=== PATIENT | female | born 1950 | race Caucasian/White ===

== ENCOUNTER 2017-07-21 08:00 | Outpatient (CLI) | payer MEDICARE, OTHER ==
[2017-07-21 12:51] LABS: BASOPHILS % (AUTO) 0.9 %; EOSINOPHILS # (AUTO) 0.1 10^3/uL (0.0-0.7); EOSINOPHILS % (AUTO) 1.3 %; LYMPHOCYTES # (AUTO) 1.3 10^3/uL (1.5-3.5); LYMPHOCYTES % (AUTO) 32.5 %; MEAN CORPUSCULAR HEMOGLOBIN 32.1 pg (27.0-31.0); MEAN CORPUSCULAR HGB CONC 32.6 g/dL (32.0-36.0); MEAN CORPUSCULAR VOLUME 98.4 fL (81.0-99.0); MEAN PLATELET VOLUME 9.3 fL (7.9-10.8); MONOCYTES # (AUTO) 0.3 10^3/uL (0.0-1.0); MONOCYTES % (AUTO) 8.5 %; NEUTROPHILS # (AUTO) 2.3 10^3/uL (1.5-6.6); NEUTROPHILS % (AUTO) 56.8 %; PLT - PLATELET COUNT 188 10^3/uL (130-450); RED BLOOD COUNT 4.06 10^6/uL (4.20-5.40); RED CELL DISTRIBUTION WIDTH 14.3 % (12.0-15.0)
[2017-07-21 13:02] LABS: ALBUMIN 4.2 g/dL (3.2-5.5); ALBUMIN/GLOBULIN RATIO 1.5 (1.0-2.2); BILIRUBIN,TOTAL 0.7 mg/dL (0.2-1.0); CALCIUM 8.7 mg/dL (8.5-10.3); CREATININE 0.8 mg/dL (0.4-1.0)
[2017-07-21 13:09] LABS: RBC MORPHOLOGY (MULTIPLE) 2+ ANISOCYTOSIS (NORMAL)
[2017-07-22 15:20] LABS: HEPATITIS C ANTIBODY NON-REACTIVE (NON-REACTIVE)
== END 2017-07-21 08:01 ==
LOC: LAB.N 08:00
PROVIDERS: ATTEND Physician Assistant Medical
DX: Z00.00 Encounter for general adult medical examination without abnormal findings (principal); Z79.899 Other long term (current) drug therapy; M81.0 Age-related osteoporosis without current pathological fracture; Z11.59 Encounter for screening for other viral diseases; E01.0 Iodine-deficiency related diffuse (endemic) goiter; Z72.89 Other problems related to lifestyle
CPT/HCPCS: 36415; 80053; 82306; 84443; 85025; 86803

== ENCOUNTER 2018-05-06 16:33 | Outpatient (CLI) | payer MEDICARE, OTHER ==
--- NOTE | 2018-05-09 09:20 | Ultrasound Report ---
Reason: THYROMEGALY Procedure Date: 05/06/2018 Accession Number: [id number] / [id number] Procedure: US - Head or Neck Soft Tissue CPT Code: FULL RESULT: EXAM: THYROID ULTRASOUND EXAM DATE: 05/06/2018 05:43 PM. CLINICAL HISTORY: THYROMEGALY. COMPARISON: Thyroid ultrasound 08/01/2008. TECHNIQUE: Real time sonographic imaging of the thyroid was performed by the tugger operator. Multiple arborist representative static images were saved for review. FINDINGS: THYROID GLAND: Right Lobe: 5.6 x 2.1 x 2.0 cm, volume 12.2 cc. Normal background echotexture. Right Lobe Nodules: 1. Upper pole 13 x 11 x 8 mm predominately hypoechoic solid complex nodule. Probably measuring 16 x 8 x 11 mm previously. 2. Midpole 18 x 14 x 8 mm predominately hypoechoic solid complex nodule. Probably measuring 15 x 7 x 17 mm previously. 3. Lower pole 30 x 19 x 23 mm complex nodule. Probably measuring 21 x 12 x 12 mm previously. Left Lobe: 3.9 x 2.2 x 1.4 cm, volume 6.2 cc. Normal background echotexture. Left Lobe Nodules: 1. Midpole 24 x 11 x 11 mm solid slightly hypoechoic nodule. Probably measuring 26 x 13 x 17 mm previously. 2. Lower pole 17 x 10 x 9 mm complex nodule. Probably measuring 21 x 12 x 15 mm previously. Isthmus: 0.3 cm AP. Isthmic Nodules: None. LYMPH NODES: No adenopathy demonstrated in the central or lateral compartment. OTHER: None. IMPRESSION: 1. Bilateral thyroid nodules, as described above, which meet criteria for consideration of ultrasound-guided FNA biopsy, if not already performed. Otherwise, at a minimum, continued ultrasound surveillance in 6-12 months is recommended.. Management recommendations are based on 2015 [employer] Management Guidelines for Adult Patients with Thyroid Nodules and Differentiated Thyroid Cancer. RADIA
== END 2018-05-06 16:34 | disposition home or self-care (01) ==
LOC: DI 16:33
PROVIDERS: ATTEND Physician Assistant Medical
DX: E04.2 Nontoxic multinodular goiter (principal)
CPT/HCPCS: 76536

== ENCOUNTER 2018-09-15 07:36 | Outpatient (CLI) | payer MEDICARE, OTHER ==
--- NOTE | 2018-09-15 09:38 | Ultrasound Report ---
Reason: LT CHEST WALL MASS, S/P MASTECTOMY Procedure Date: 09/15/2018 Accession Number: [id number] / [id number] Procedure: US - Breast Unilateral Limited CPT Code: FULL RESULT: EXAM: Breast Unilateral Limited DATE: 09/15/2018 8:54 AM CLINICAL HISTORY: History of left mastectomy in 2009. Intermittent palpable lump and tenderness inferior to the mastectomy scar over the last year. Palpable findings were also confirmed by PCP exam; patient unable to palpate today. TECHNIQUE: Real-time ultrasound was performed of the left mastectomy site by both the technologist and the radiologist with attention to the areas of palpable concern inferior to the mastectomy scar medial and lateral. COMPARISON: None FINDINGS: Targeted ultrasound is performed of the entire mastectomy site with attention to areas of the palpable concern described inferior to the lumpectomy scar. No concerning palpable findings were noted to physical exam today. Only normal tissues are noted expected scarring changes along the length of the mastectomy scar. IMPRESSION: Left breast: Expected post mastectomy changes. No ultrasound abnormality in the regions of the clinical concern. Benign. BI-RADS Category 2. Clinical follow-up for palpable findings is recommended. Patient was instructed to seek further evaluation for any increase in current symptoms or new symptoms/concerns and to continue with routine screening mammography of the contralateral breast. BI-RADS CATEGORY 2: Benign findings
== END 2018-09-15 07:37 | disposition home or self-care (01) ==
LOC: DI 07:36
PROVIDERS: ATTEND Internal Medicine Hematology & Oncology
DX: R22.2 Localized swelling, mass and lump, trunk (principal); Z85.3 Personal history of malignant neoplasm of breast; Z90.12 Acquired absence of left breast and nipple
CPT/HCPCS: 76642

== ENCOUNTER 2019-02-27 08:00 | Outpatient (CLI) | payer MEDICARE, OTHER ==
[2019-02-27 12:35] LABS: ALBUMIN 4.1 g/dL (3.2-5.5); ALBUMIN/GLOBULIN RATIO 1.4 (1.0-2.2); ALKALINE PHOSPHATASE 64 IU/L (42-121); ALT ALANINE AMINOTRANSFERASE 13 IU/L (10-60); AST ASPARTATE AMINOTRANSFERASE 17 IU/L (10-42); BILIRUBIN,TOTAL 0.7 mg/dL (0.2-1.0); BUN - BLOOD UREA NITROGEN 13 mg/dL (6-20); CALCIUM 9.1 mg/dL (8.5-10.3); CARBON DIOXIDE - CO2 29 mmol/L (21-32); CHLORIDE 102 mmol/L (101-111); CHOL/HDL RATIO 2.7 (<4.4); CHOLESTEROL 201 mg/dL; CREATININE 0.8 mg/dL (0.4-1.0); GFR - MDRD 71 (>89); GLUCOSE 87 mg/dL (70-100); HDL CHOLESTEROL 75 mg/dL; LDL CHOLESTEROL,CALCULATED 109 mg/dL; LDL/HDL RATIO 1.5 (<4.4); SODIUM 138 mmol/L (135-145); TOTAL PROTEIN 7.1 g/dL (6.7-8.2); VLDL CHOLESTEROL 17 mg/dL
[2019-02-27 12:41] LABS: BASOPHILS % (AUTO) 0.7 %; EOSINOPHILS # (AUTO) 0.1 10^3/uL (0.0-0.7); EOSINOPHILS % (AUTO) 2.2 %; HGB - HEMOGLOBIN 12.7 g/dL (12.0-16.0); LYMPHOCYTES # (AUTO) 1.4 10^3/uL (1.5-3.5); LYMPHOCYTES % (AUTO) 30.9 %; MEAN CORPUSCULAR HEMOGLOBIN 30.9 pg (27.0-31.0); MEAN CORPUSCULAR VOLUME 96.6 fL (81.0-99.0); MEAN PLATELET VOLUME 10.2 fL (7.9-10.8); MONOCYTES # (AUTO) 0.3 10^3/uL (0.0-1.0); MONOCYTES % (AUTO) 7.6 %; NEUTROPHILS # (AUTO) 2.6 10^3/uL (1.5-6.6); NEUTROPHILS % (AUTO) 58.4 %; PLT - PLATELET COUNT 228 10^3/uL (130-450); RED BLOOD COUNT 4.11 10^6/uL (4.20-5.40); RED CELL DISTRIBUTION WIDTH 13.8 % (12.0-15.0); WHITE BLOOD COUNT 4.5 x10^3/uL (4.8-10.8)
[2019-02-27 12:43] LABS: T4 (THYROXINE) 9.54 ug/dL (6.09-12.23)
[2019-02-27 12:46] LABS: THYROID STIMULATING HORMONE 1.59 uIU/mL (0.34-5.60)
== END 2019-02-27 08:30 | disposition home or self-care (01) ==
LOC: LAB.N 08:00
PROVIDERS: ATTEND Nurse Practitioner
DX: Z00.00 Encounter for general adult medical examination without abnormal findings (principal); Z85.3 Personal history of malignant neoplasm of breast; E01.0 Iodine-deficiency related diffuse (endemic) goiter; M81.0 Age-related osteoporosis without current pathological fracture; Z79.899 Other long term (current) drug therapy
CPT/HCPCS: 36415; 80053; 80061; 82306; 83721; 84436; 84443; 84481; 85025

== ENCOUNTER 2019-03-23 09:00 | Outpatient (CLI) | payer MEDICARE, OTHER ==
--- NOTE | 2019-03-24 10:50 | XRAY Report ---
Reason: LEFT FOOT PAIN Procedure Date: 03/23/2019 Accession Number: [id number] / [id number] Procedure: WCP - Foot 3 View LT CPT Code: FULL RESULT: EXAM: LEFT FOOT RADIOGRAPHY EXAM DATE: 03/23/2019 10:41 AM. CLINICAL HISTORY: Left foot pain. COMPARISON: XR FOOT COMPLETE MIN 3 VIEWS 10/01/2010 10:48 AM. TECHNIQUE: 3 views. FINDINGS: Bones: Old fracture deformity of the fifth metatarsal shaft. No acute traumatic or destructive bone abnormality. Accessory ossicles next to the cuboid and navicular. Joints: Normal. No subluxations. Soft Tissues: Unremarkable. IMPRESSION: No cause for pain identified. RADIA
== END 2019-03-23 23:59 | disposition home or self-care (01) ==
LOC: DI.WCP 09:00 → EDSTATUS 13:40 → DI.WCP 23:59
PROVIDERS: ATTEND Family Medicine
DX: M79.672 Pain in left foot (principal)

== ENCOUNTER 2019-04-12 11:24 | Day surgery (SDC) | payer MEDICARE, OTHER ==
[2019-04-12] MEDS ORDERED: LACTATED RINGERS 1,000 ML IV ONE (11:50)
[2019-04-12] MEDS: LIDOCAINE JELLY 2% 5 ML TUBE TOP ONE ×2 (13:08→13:27)
[2019-04-12] MEDS ORDERED: LACTATED RINGERS 500 ML IV ONE (14:25)
[2019-04-12] MEDS ORDERED: ONDANSETRON 4 MG/2 ML VIAL ONE (14:42)
[2019-04-12 15:01] VITALS: BP 127/64
== END 2019-04-12 11:25 | disposition home or self-care (01) ==
LOC: SDS 11:24
PROVIDERS: ATTEND Surgery
PROC: 0DJD8ZZ Inspection of Lower Intestinal Tract, Via Natural or Artificial Opening Endoscopic (ICD-10-PCS; principal; 2019-04-12 12:15)
DX: Z12.11 Encounter for screening for malignant neoplasm of colon (principal); K57.30 Diverticulosis of large intestine without perforation or abscess without bleeding; Z80.0 Family history of malignant neoplasm of digestive organs; K21.9 Gastro-esophageal reflux disease without esophagitis; Z85.3 Personal history of malignant neoplasm of breast; M81.0 Age-related osteoporosis without current pathological fracture
CPT/HCPCS: G0105; J3490; J7120

== ENCOUNTER 2019-08-02 14:44 | Outpatient (CLI) | payer MEDICARE, OTHER ==
--- NOTE | 2019-08-03 11:29 | XRAY Report ---
Reason: Muscle spasm, back; joint pain Procedure Date: 08/02/2019 Accession Number: [id number] / [id number] Procedure: XR - Hip w/Pelvis 2-3V RT CPT Code: Final Report FULL RESULT: EXAM: RIGHT HIP RADIOGRAPHY 2 VIEWS EXAM DATE: 08/02/2019. CLINICAL HISTORY: Muscle spasm, back. Joint pain. COMPARISON: The pelvis and right hip done 04/02/2014. TECHNIQUE: AP view of the pelvis and a frog-leg view of the right hip. FINDINGS: Bones: Normal. No fractures or bone lesion. Joints: Mild hip joint space narrowing bilaterally is unchanged. The sacroiliac joints and the pubic symphysis appear normal. Mild narrowing of the L4-L5 disk. Soft Tissues: Normal. No soft tissue swelling. IMPRESSION: Mild degenerative joint disease of the hips, and mild L4-L5 degenerative disk disease, unchanged from 04/02/2014. No acute abnormality. RADIA
== END 2019-08-02 14:45 | disposition home or self-care (01) ==
LOC: DI 14:44
PROVIDERS: ATTEND Family Medicine
DX: M16.0 Bilateral primary osteoarthritis of hip (principal); M62.830 Muscle spasm of back; M51.36 Other intervertebral disc degeneration, lumbar region

== ENCOUNTER 2020-02-29 07:37 | Outpatient (CLI) | payer MEDICARE, OTHER ==
[2020-02-29 11:50] LABS: BASOPHILS % (AUTO) 0.7 %; EOSINOPHILS # (AUTO) 0.1 10^3/uL (0.0-0.7); EOSINOPHILS % (AUTO) 2.1 %; HGB - HEMOGLOBIN 12.9 g/dL (12.0-16.0); LYMPHOCYTES # (AUTO) 1.4 10^3/uL (1.5-3.5); MEAN CORPUSCULAR HEMOGLOBIN 31.9 pg (27.0-31.0); MEAN CORPUSCULAR HGB CONC 33.1 g/dL (32.0-36.0); MEAN CORPUSCULAR VOLUME 96.5 fL (81.0-99.0); MEAN PLATELET VOLUME 10.5 fL (7.9-10.8); MONOCYTES # (AUTO) 0.5 10^3/uL (0.0-1.0); MONOCYTES % (AUTO) 8.1 %; NEUTROPHILS # (AUTO) 4.1 10^3/uL (1.5-6.6); NEUTROPHILS % (AUTO) 66.9 %; PLT - PLATELET COUNT 212 10^3/uL (130-450); RED BLOOD COUNT 4.04 10^6/uL (4.20-5.40); RED CELL DISTRIBUTION WIDTH 13.2 % (12.0-15.0); WHITE BLOOD COUNT 6.1 x10^3/uL (4.8-10.8)
[2020-02-29 12:16] LABS: THYROID STIMULATING HORMONE 1.1 uIU/mL (0.34-5.60)
[2020-02-29 12:18] LABS: FREE T3 3.71 pg/mL (2.5-3.9)
[2020-02-29 12:19] LABS: FREE T4 (FREE THYROXINE) 0.88 ng/dL (0.58-1.64)
[2020-02-29 13:23] LABS: ALBUMIN 4.2 g/dL (3.2-5.5); ALBUMIN/GLOBULIN RATIO 1.4 (1.0-2.2); ALKALINE PHOSPHATASE 66 IU/L (42-121); ALT ALANINE AMINOTRANSFERASE 12 IU/L (10-60); AST ASPARTATE AMINOTRANSFERASE 15 IU/L (10-42); BILIRUBIN,TOTAL 1.1 mg/dL (0.2-1.0); BUN - BLOOD UREA NITROGEN 14 mg/dL (6-20); CALCIUM 9.5 mg/dL (8.5-10.3); CARBON DIOXIDE - CO2 28 mmol/L (21-32); CHLORIDE 102 mmol/L (101-111); CHOL/HDL RATIO 2.8 (<4.4); CHOLESTEROL 192 mg/dL; CREATININE 0.8 mg/dL (0.4-1.0); GLUCOSE 85 mg/dL (70-100); HDL CHOLESTEROL 69 mg/dL; LDL CHOLESTEROL,CALCULATED 109 mg/dL; LDL/HDL RATIO 1.6 (<4.4); SODIUM 140 mmol/L (135-145); TOTAL PROTEIN 7.2 g/dL (6.7-8.2); VLDL CHOLESTEROL 14 mg/dL
== END 2020-02-29 07:38 | disposition home or self-care (01) ==
LOC: LAB.WCP 07:37
PROVIDERS: ATTEND Nurse Practitioner
DX: Z79.899 Other long term (current) drug therapy (principal); Z85.3 Personal history of malignant neoplasm of breast; E01.0 Iodine-deficiency related diffuse (endemic) goiter; K21.9 Gastro-esophageal reflux disease without esophagitis; M81.0 Age-related osteoporosis without current pathological fracture
CPT/HCPCS: 36415; 80053; 80061; 82306; 83721; 84439; 84443; 84481; 85025

== ENCOUNTER 2021-04-26 08:00 | Outpatient (CLI) | payer MEDICARE, OTHER | END 2021-04-26 23:59 | disposition home or self-care (01) | LOC: LAB.N 08:00 | PROVIDERS: ATTEND Family Medicine | DX: R07.0 Pain in throat (principal); Z20.822 Contact with and (suspected) exposure to COVID-19 ==

== ENCOUNTER 2021-05-12 08:00 | Outpatient (CLI) | payer MEDICARE, OTHER | END 2021-05-12 23:59 | disposition home or self-care (01) | LOC: LAB.N 08:00 | PROVIDERS: ATTEND Physician Assistant Medical | DX: R07.0 Pain in throat (principal) ==

== ENCOUNTER 2021-09-01 08:15 | Outpatient (CLI) | payer MEDICARE, OTHER | END 2021-09-01 08:16 | disposition home or self-care (01) | LOC: LAB.N 08:15 | PROVIDERS: ATTEND Internal Medicine Hematology & Oncology | DX: Z53.9 Procedure and treatment not carried out, unspecified reason (principal) ==

== ENCOUNTER 2022-04-01 10:51 | Outpatient (CLI) | payer MEDICARE, OTHER ==
[2022-04-01 17:52] LABS: BASOPHILS % (AUTO) 0.6 %; EOSINOPHILS # (AUTO) 0.1 10^3/uL (0.0-0.7); EOSINOPHILS % (AUTO) 1.3 %; HCT - HEMATOCRIT 40.8 % (37.0-47.0); HGB - HEMOGLOBIN 13.3 g/dL (12.0-16.0); LYMPHOCYTES # (AUTO) 1.7 10^3/uL (1.5-3.5); LYMPHOCYTES % (AUTO) 23.8 %; MEAN CORPUSCULAR HEMOGLOBIN 30.9 pg (27.0-31.0); MEAN CORPUSCULAR HGB CONC 32.6 g/dL (32.0-36.0); MEAN CORPUSCULAR VOLUME 94.7 fL (81.0-99.0); MEAN PLATELET VOLUME 11.1 fL (7.9-10.8); MONOCYTES # (AUTO) 0.5 10^3/uL (0.0-1.0); MONOCYTES % (AUTO) 7.4 %; NEUTROPHILS # (AUTO) 4.6 10^3/uL (1.5-6.6); NEUTROPHILS % (AUTO) 65.9 %; PLT - PLATELET COUNT 250 10^3/uL (130-450); RED BLOOD COUNT 4.31 10^6/uL (4.20-5.40); RED CELL DISTRIBUTION WIDTH 13.8 % (12.0-15.0)
[2022-04-01 18:21] LABS: ALBUMIN/GLOBULIN RATIO 1.3 (1.0-2.2); ALKALINE PHOSPHATASE 68 IU/L (42-121); ALT ALANINE AMINOTRANSFERASE 14 IU/L (10-60); AST ASPARTATE AMINOTRANSFERASE 22 IU/L (10-42); BILIRUBIN,TOTAL 0.7 mg/dL (0.2-1.0); BUN - BLOOD UREA NITROGEN 16 mg/dL (6-20); CALCIUM 9.2 mg/dL (8.5-10.3); CARBON DIOXIDE - CO2 28 mmol/L (21-32); CHLORIDE 101 mmol/L (101-111); CHOL/HDL RATIO 2.9 (<4.4); CHOLESTEROL 202 mg/dL; CREATININE 0.8 mg/dL (0.4-1.0); GFR - MDRD 71 (>89); GLUCOSE 86 mg/dL (70-100); HDL CHOLESTEROL 70 mg/dL; LDL CHOLESTEROL,CALCULATED 115 mg/dL; LDL/HDL RATIO 1.6 (<4.4); POTASSIUM 4.3 mmol/L (3.5-5.0); SODIUM 135 mmol/L (135-145); TOTAL PROTEIN 7.1 g/dL (6.7-8.2); TRIGLYCERIDES 84 mg/dL; VLDL CHOLESTEROL 17 mg/dL
[2022-04-01 18:25] LABS: THYROID STIMULATING HORMONE 1.15 uIU/mL (0.34-5.60)
[2022-04-01 18:27] LABS: FREE T4 (FREE THYROXINE) 0.89 ng/dL (0.58-1.64)
== END 2022-04-01 10:52 | disposition home or self-care (01) ==
LOC: LAB.N 10:51
PROVIDERS: ATTEND Nurse Practitioner
DX: E55.9 Vitamin D deficiency, unspecified (principal); G62.9 Polyneuropathy, unspecified; E04.2 Nontoxic multinodular goiter; Z13.220 Encounter for screening for lipoid disorders; Z79.899 Other long term (current) drug therapy
CPT/HCPCS: 36415; 80053; 80061; 82306; 82607; 83721; 84439; 84443; 85025

== ENCOUNTER 2022-04-06 08:00 | Outpatient (CLI) | payer MEDICARE, OTHER ==
--- NOTE | 2022-04-07 16:25 | XRAY Report ---
PROCEDURE: Knee 3 View LT INDICATIONS: L KNEE PX TECHNIQUE: 3 3 views of the left knee(s) were acquired. COMPARISON: None. FINDINGS: No fracture or dislocation. Normal patellar height and position and mild degenerative patellar tilt. No knee joint effusion. Mild tricompartmental joint space narrowing. IMPRESSION: No acute finding. Reviewed by: Duong Reddy MD on 04/07/2022 4:24 PM PDT Approved by: Duong Reddy MD on 04/07/2022 4:24 PM PDT Station ID: [id number]
== END 2022-04-06 23:59 | disposition home or self-care (01) ==
LOC: DI.N 08:00
PROVIDERS: ATTEND Physician Assistant Medical
DX: S80.02XA Contusion of left knee, initial encounter (principal); M17.12 Unilateral primary osteoarthritis, left knee

== ENCOUNTER 2022-04-06 13:53 | Outpatient (CLI) | payer MEDICARE, OTHER | END 2022-04-06 13:54 | disposition home or self-care (01) | LOC: LAB.N 13:53 | PROVIDERS: ATTEND Physician Assistant Medical | DX: Z53.9 Procedure and treatment not carried out, unspecified reason (principal) ==

== ENCOUNTER 2022-05-04 08:00 | Outpatient (CLI) | payer MEDICARE, OTHER ==
--- NOTE | 2022-05-04 13:41 | XRAY Report ---
PROCEDURE: Knee 2 View LT INDICATIONS: LEFT KNEE PAIN TECHNIQUE: 2 views of the right and one of the left bilateral (s) were acquired. COMPARISON: 04/06/2022 FINDINGS: Bones: Mild medial compartment joint space loss, fairly symmetric. No visible fractures. Soft tissues: No visible chondrocalcinosis. IMPRESSION: Mild medial compartment joint space loss. Reviewed by: Laura Vazquez MD on 05/04/2022 1:40 PM PDT Approved by: Laura Vazquez MD on 05/04/2022 1:40 PM PDT Station ID: [id number]
== END 2022-05-04 23:59 | disposition home or self-care (01) ==
LOC: DI.WOS 08:00
PROVIDERS: ATTEND Physician Assistant Surgical
DX: M25.562 Pain in left knee (principal)

== ENCOUNTER 2023-05-14 07:52 | Outpatient (CLI) | payer MEDICARE, OTHER ==
[2023-05-14 12:27] LABS: BASOPHILS % (AUTO) 0.8 %; EOSINOPHILS # (AUTO) 0.1 10^3/uL (0.0-0.7); EOSINOPHILS % (AUTO) 2.7 %; HCT - HEMATOCRIT 40.7 % (37.0-47.0); HGB - HEMOGLOBIN 12.7 g/dL (12.0-16.0); LYMPHOCYTES # (AUTO) 1.7 10^3/uL (1.5-3.5); MEAN CORPUSCULAR HEMOGLOBIN 30.2 pg (27.0-31.0); MEAN CORPUSCULAR HGB CONC 31.2 g/dL (32.0-36.0); MEAN CORPUSCULAR VOLUME 96.7 fL (81.0-99.0); MEAN PLATELET VOLUME 10.8 fL (7.9-10.8); MONOCYTES # (AUTO) 0.4 10^3/uL (0.0-1.0); MONOCYTES % (AUTO) 9.1 %; NEUTROPHILS # (AUTO) 2.6 10^3/uL (1.5-6.6); NEUTROPHILS % (AUTO) 53.2 %; PLT - PLATELET COUNT 226 10^3/uL (130-450); RED BLOOD COUNT 4.21 10^6/uL (4.20-5.40); RED CELL DISTRIBUTION WIDTH 13.6 % (12.0-15.0); WHITE BLOOD COUNT 4.9 x10^3/uL (4.8-10.8)
[2023-05-14 12:46] LABS: ALBUMIN 4.1 g/dL (3.2-5.5); ALBUMIN/GLOBULIN RATIO 1.5 (1.0-2.2); ALKALINE PHOSPHATASE 68 IU/L (42-121); ALT ALANINE AMINOTRANSFERASE 9 IU/L (10-60); AST ASPARTATE AMINOTRANSFERASE 15 IU/L (10-42); BILIRUBIN,TOTAL 0.5 mg/dL (0.2-1.0); BUN - BLOOD UREA NITROGEN 13 mg/dL (6-20); CALCIUM 9.3 mg/dL (8.5-10.3); CARBON DIOXIDE - CO2 31 mmol/L (21-32); CHLORIDE 105 mmol/L (101-111); CHOL/HDL RATIO 2.7 (<4.4); CHOLESTEROL 194 mg/dL; CREATININE 0.9 mg/dL (0.6-1.3); GFR - MDRD 61 (>89); GLUCOSE 88 mg/dL (74-104); HDL CHOLESTEROL 73 mg/dL; LDL CHOLESTEROL,CALCULATED 99 mg/dL; LDL/HDL RATIO 1.4 (<4.4); POTASSIUM 4.6 mmol/L (3.5-4.5); SODIUM 140 mmol/L (135-145); TOTAL PROTEIN 6.9 g/dL (6.4-8.9); TRIGLYCERIDES 108 mg/dL (48-352); VLDL CHOLESTEROL 22 mg/dL
[2023-05-14 12:58] LABS: THYROID STIMULATING HORMONE 1.28 uIU/mL (0.34-5.60)
== END 2023-05-14 07:53 | disposition home or self-care (01) ==
LOC: LAB.N 07:52
PROVIDERS: ATTEND Nurse Practitioner
DX: E01.0 Iodine-deficiency related diffuse (endemic) goiter (principal); Z79.899 Other long term (current) drug therapy; Z13.220 Encounter for screening for lipoid disorders; G62.9 Polyneuropathy, unspecified
CPT/HCPCS: 36415; 80053; 80061; 82607; 83721; 84439; 84443; 85025

== ENCOUNTER 2023-12-21 08:06 | Day surgery (SDC) | payer MEDICARE, OTHER ==
[2023-12-21] MEDS: LACTATED RINGERS 1,000 ML IV ONE ×2 (08:12→10:15)
--- NOTE | 2023-12-21 08:51 | ANESTHESIA ---
Pre-Anesthesia VS, & Labs - Diagnosis family hx/screening - Procedure colonoscopy Vital Signs: Temp Pulse Resp BP Pulse Ox O2 Flow Rate 36.2 C L 74 14 140/80 H 100 12/21/23 08:12 12/21/23 08:12 12/21/23 08:12 12/21/23 08:12 12/21/23 08:12 Height: 5 ft 10 in Weight (kg): 69.2 kg Body Mass Index: 21.9 BMI Classification: Normal - NPO Last Fluid Intake: 399 - Is Patient ?: No Home Medications and Allergies Home Medications: Ambulatory Orders Zoledronic Acid/Mannitol-Water [Zometa] 1 syr [id number] ONCE 12/20/23 Multivitamin [Multivitamins] 1 each PO DAILY 09/12/13 Aspirin/Acetaminophen/Caffeine [Excedrin Extra Strength Caplet] 1 each PO PRN PRN 09/06/18 Biotin 1 tab PO DAILY 09/05/19 Cholecalciferol (Vitamin D3) [Vitamin D3] 1 tab PO DAILY 09/05/19 Magnesium 1 tab PO DAILY 09/05/19 Melatonin 1 - 10 mg PO DAILY PRN 09/05/19 flaxseed oiL [Flaxseed Oil] 1 cap PO DAILY 09/05/19 Zoledronic Acid/Mannitol-Water [Zometa] 1 syr [id number] ONCE 12/20/23 Allergies/Adverse Reactions: Allergies Allergy/AdvReac Type Severity Reaction Status Date / Time risedronate sodium Allergy Intermediate Dizziness Verified 09/03/20 15:36 [From Actonel] ibandronate sodium AdvReac Intermediate Dizziness Verified 09/03/20 15:36 [From Boniva] Bisphosphonates AdvReac Dizziness Verified 09/03/20 15:36 Anes History & Medical History - Anesthetic History Anesthesia Complications: reports: No previous complications - Medical History Cardiovascular: reports: None (tires quickley, no cp, could do 2 fos, slowly), Other Pulmonary: reports: Shortness of breath Gastrointestinal: reports: GERD, Other Urinary: reports: None Musculoskeletal: reports: Osteoarthritis, Osteoporosis Endocrine/Autoimmune: reports: None Skin: reports: Eczema, Other Smoking Status: Never smoker Psychosocial: reports: No issues indicated History of Cancer?: Yes (left mastectomy and nodes/ no bp or iv on the left) - Surgical History General: reports: Colonoscopy Gynecologic: reports: Mastectomy Orthopedic: reports: Other Results - EKG Results EKG Comparison: Reviewed EKG Exam General: Alert Mouth Openin Fingerbreadth Neck Mobility: Reduced Mallampati classification: II Thyromental Distance: 4-6 cm Respiratory: Lungs clear Cardiovascular: Regular rate Plan Anesthesia Type: Total IV Consent for Procedure(s) Verified and Reviewed: Yes Code Status: Attempt Resuscitation ASA classification: 2-Mild systemic disease Is this case an emergency?: No
[2023-12-21] MEDS ORDERED: PROPOFOL 500 MG/50 ML 500 MG/50 ML VIAL ONE (09:22)
[2023-12-21] MEDS ORDERED: LIDOCAINE-PF 2% 10 ML AMP SUBQ ONE (09:34)
[2023-12-21] MEDS: SIMETHICONE *(INFANT SUSP)* 40 MG/0.6 ML BOTTLE PO ONE (09:49)
[2023-12-21 13:31] VITALS: BP 108/71; O2SAT 99
--- NOTE | 2023-12-21 14:19 | ANESTHESIA POST OP EVALUATION ---
Anesthesia Post Eval - Post Anesthesia Eval Vitals: Last Vital Signs Temp 36 C L 12/21/23 10:30 Pulse 68 12/21/23 10:30 Resp 16 12/21/23 10:30 BP 108/71 12/21/23 10:30 Pulse Ox 99 12/21/23 10:30 O2 Flow Rate CV Function Including HR & BP: Stable Pain Control: Satisfactory Nausea & Vomiting: Negative Mental Status: Baseline Respiratory Status: Airway Patent Hydration Status: Satisfactory Anesthesia Complications: None
== END 2023-12-21 08:07 | disposition home or self-care (01) ==
LOC: SDS 08:06
PROVIDERS: ATTEND Surgery
DX: R10.32 Left lower quadrant pain (principal); K57.30 Diverticulosis of large intestine without perforation or abscess without bleeding; R53.83 Other fatigue; K59.00 Constipation, unspecified; K62.5 Hemorrhage of anus and rectum; Z80.0 Family history of malignant neoplasm of digestive organs
CPT/HCPCS: 45378; A9270; J7120

== ENCOUNTER 2023-12-29 22:56 | Emergency (ER) | payer MEDICARE, OTHER ==
--- NOTE | 2023-12-29 23:34 | ED Physician Documentation ---
PD HPI HEADACHE - Stated complaint Stated Complaint: MATHIS/VOMIT - Chief complaint Chief Complaint: Heent - History obtained from History obtained from: Patient, Family - Additional information Additional information: HPI from patient, (in ED at bedside). Patient complains of generalized headache with nausea and vomiting, rapid onset early afternoon today without an inciting event. Denies injury. She says she has migraine headaches, but has not had a significant headache in many years. She says that her typical headaches resolve with Excedrin. She took an Excedrin earlier today after the headache began, felt better but then had an episode of emesis and since then has had severe, generalized headache with ongoing nausea and intermittent vomiting to the point of being unable to tolerate any p.o. Denies fevers. Does not take any blood-thinning medications. The headache is exacerbated with lights, noise. Mild improvement/ameliorating with quiet and dark room. Review of Systems Constitutional: denies: Fever GI: reports: Nausea, Vomiting. denies: Abdominal Pain Neurologic: reports: Headache. denies: Generalized weakness, Focal weakness, Numbness, Confused, Altered mental status, Head injury PD PAST MEDICAL HISTORY - Past Medical History Cardiovascular: None, Other Respiratory: Shortness of breath Endocrine/Autoimmune: None GI: GERD, Other : None HEENT: Chronic sinusitis, Other Psych: None Musculoskeletal: Osteoarthritis, Osteoporosis Derm: Eczema, Other - Past Surgical History Past Surgical History: Yes General: Colonoscopy Ortho: Other /SU[employer]OR [employer] TESTING: Mastectomy - Present Medications Home Medications: Ambulatory Orders Medication Instructions Recorded Confirmed Multivitamin [Multivitamins] 1 each PO DAILY 09/12/13 12/20/23 Aspirin/Acetaminophen/Caffeine 1 each PO PRN PRN 09/06/18 12/20/23 [Excedrin Extra Strength Caplet] Biotin 1 tab PO DAILY 09/05/19 12/20/23 Cholecalciferol (Vitamin D3) 1 tab PO DAILY 09/05/19 12/20/23 [Vitamin D3] Magnesium 1 tab PO DAILY 09/05/19 12/20/23 Melatonin 1 - 10 mg PO DAILY PRN 09/05/19 12/20/23 flaxseed oiL [Flaxseed Oil] 1 cap PO DAILY 09/05/19 12/20/23 Zoledronic Acid/Mannitol-Water 1 syr [id number] ONCE 12/20/23 12/20/23 [Zometa] Ondansetron Odt [Zofran] 4 mg TL Q6H PRN #14 tablet 12/30/23 SUMAtriptan [Imitrex] 25 mg PO ONCE PRN #20 tablet 12/30/23 - Allergies Allergies/Adverse Reactions: Allergies Allergy/AdvReac Type Severity Reaction Status Date / Time risedronate sodium Allergy Intermediate Dizziness Verified 12/29/23 23:09 [From Actonel] ibandronate sodium AdvReac Intermediate Dizziness Verified 12/29/23 23:09 [From Boniva] Bisphosphonates AdvReac Dizziness Verified 12/29/23 23:09 - Social History Does the pt smoke?: No Smoking Status: Never smoker Does the pt drink ETOH?: No Does the pt have substance abuse?: No - Immunizations Immunizations are current?: No Immunizations: Other immun not current PD ED PE NORMAL - Vitals Vital signs reviewed: Yes - General General: Alert and oriented X 3, Well developed/nourished, Other (appears to be in moderate painful discomfort. dark room for patient comfort. keeps eyes closed due to photophobia) - HEENT HEENT: PERRL, EOMI, Moist mucous membranes - Neck Neck: Supple, no meningeal sign - Cardiac Cardiac: RRR, No murmur - Respiratory Respiratory: No respiratory distress, Clear bilaterally - Neuro Neuro: Alert and oriented X 3, roof panel hanger 2-12 intact, No motor deficit, No sensory deficit, Normal speech Eye Opening: To Voice Motor: Obeys Commands Verbal: Oriented GCS Score: 14 Results - Vitals Vitals: Vital Signs - 24 hr 12/29/23 12/30/23 12/30/23 22:59 00:24 01:00 Temperature 36.9 C Heart Rate 80 56 L 64 Respiratory 17 16 18 Rate Blood Pressure 190/88 H 179/82 H 160/76 H O2 Saturation 98 96 98 12/30/23 01:32 Temperature Heart Rate 80 Respiratory 18 Rate Blood Pressure 137/85 H O2 Saturation 98 Oxygen O2 Source Room air PD Medical Decision Making - ED course Complexity details: reviewed old records, re-evaluated patient, considered differential, d/w patient ED course: IV established and patient is given 1 L normal saline IV, 30 mg IV Toradol, 4 mg IV Zofran, 12.5 mg IV phenergan, and 6mg SQ imitrex. This combination of medications (along with IV NS) were given on her last ED visit for headache with symptomatic relief (note that this was 10 years ago, which speaks to the infrequency of her headaches). On reevaluation, she is AAOx3, in NAD even with lights on in room. She reports resolution of her MATHIS. Given this response to non-narcotic interventions makes emergent etiology (such as ICH, intracranial mass) highly unlikely and thus emergent testing not undertaken at this time. Return precautions reviewed. E- prescribed PO imitrex and zofran. Departure - Departure Disposition: 01 Home, Self Care Clinical Impression: Migraine Condition: Good Instructions: ED Headache Migraine Prescriptions: SUMAtriptan [Imitrex] 25 mg PO ONCE PRN #20 tablet PRN Reason: Headache Ondansetron Odt [Zofran] 4 mg TL Q6H PRN #14 tablet PRN Reason: Nausea / Vomiting Comments: I have submitted prescriptions for ondansetron (antinausea medication) and sumatriptan hand (antimigraine medication) to the [facility] pharmacy in [place]. Discharge Date/Time: 12/30/23 01:32
[2023-12-29] MEDS: SODIUM CHLORIDE 0.9% 1,000 ML IV STA (23:49)
[2023-12-29] MEDS ORDERED: PROMETHAZINE 25 MG/1 ML VIAL ONE (23:59)
[2023-12-30] MEDS: ONDANSETRON 4 MG/2 ML VIAL IVP STA (00:03)
[2023-12-30] MEDS: KETOROLAC 30 MG/ML VIAL IVP STA (00:05)
[2023-12-30] MEDS: PROMETHAZINE INJ 12.5 MG in SODIUM CHLORIDE 0.9% 50 ML IV STA (00:07)
[2023-12-30] MEDS: SUMAtriptan 6 MG/0.5 ML VIAL SUBQ STA (00:11)
[2023-12-30 01:08] VITALS: O2SAT 98
[2023-12-30 01:40] VITALS: BP 137/85
== END 2023-12-30 01:32 | disposition home or self-care (01) ==
LOC: ED 22:56
DX: G43.909 Migraine, unspecified, not intractable, without status migrainosus (principal)
CPT/HCPCS: 96365; 96372; 96375; 99284; 99285; J7040

== ENCOUNTER 2024-01-09 08:44 | Emergency (ER) | payer MEDICARE, OTHER ==
[2024-01-09 09:09] VITALS: O2SAT 100
--- NOTE | 2024-01-09 10:37 | ED Physician Documentation ---
PD HPI UPPER EXT INJURY - Stated complaint Stated Complaint: RT ARM LAC - Chief complaint Chief Complaint: Laceration - History obtained from History obtained from: Patient - History of Present Illness Location: Right, Forearm (lateral proximal forearm) Where injury occurred: Home (she stumbled and fell forearm against a door/ doorknob, causing large lac to fatty tissue with bleeding. No FB. No numbness nor weakness in hand.) Timing - onset: Today Worsened by: Palpating Associated symptoms: No: Weakness, Numbness, Swelling Similar symptoms before: Has not had sx before Review of Systems Neurologic: denies: Focal weakness, Numbness, Altered mental status, Headache PD PAST MEDICAL HISTORY - Past Medical History Cardiovascular: None, Other Respiratory: Shortness of breath Endocrine/Autoimmune: None GI: GERD, Other : None HEENT: Chronic sinusitis, Other Psych: None Musculoskeletal: Osteoarthritis, Osteoporosis Derm: Eczema, Other - Past Surgical History Past Surgical History: Yes General: Colonoscopy 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 - Present Medications Home Medications: Ambulatory Orders Medication Instructions Recorded Confirmed Multivitamin [Multivitamins] 1 each PO DAILY 09/12/13 12/20/23 Aspirin/Acetaminophen/Caffeine 1 each PO PRN PRN 09/06/18 12/20/23 [Excedrin Extra Strength Caplet] Biotin 1 tab PO DAILY 09/05/19 12/20/23 Cholecalciferol (Vitamin D3) 1 tab PO DAILY 09/05/19 12/20/23 [Vitamin D3] Magnesium 1 tab PO DAILY 09/05/19 12/20/23 Melatonin 1 - 10 mg PO DAILY PRN 09/05/19 12/20/23 flaxseed oiL [Flaxseed Oil] 1 cap PO DAILY 09/05/19 12/20/23 Zoledronic Acid/Mannitol-Water 1 syr [id number] ONCE 12/20/23 12/20/23 [Zometa] Ondansetron Odt [Zofran] 4 mg TL Q6H PRN #14 tablet 12/30/23 SUMAtriptan [Imitrex] 25 mg PO ONCE PRN #20 tablet 12/30/23 - Allergies Allergies/Adverse Reactions: Allergies Allergy/AdvReac Type Severity Reaction Status Date / Time risedronate sodium Allergy Intermediate Dizziness Verified 01/09/24 09:09 [From Actonel] ibandronate sodium AdvReac Intermediate Dizziness Verified 01/09/24 09:09 [From Boniva] Bisphosphonates AdvReac Dizziness Verified 01/09/24 09:09 - Social History Does the pt smoke?: No Smoking Status: Never smoker Does the pt drink ETOH?: No Does the pt have substance abuse?: No - Immunizations Immunizations are current?: No Immunizations: Other immun not current PD ED PE NORMAL - Vitals Vital signs reviewed: Yes - General General: Alert and oriented X 3, No acute distress, Well developed/nourished - HEENT HEENT: Atraumatic - Neck Neck: Supple, no meningeal sign, No bony TTP, No adenopathy - Derm Derm: Normal color, Warm and dry - Extremities Extremities: Other (right lateral proximal forearm with abraded area and ceentral lac 2 cm down through fatty tissue layer. No FB seen. Good ROM without pain.) - Neuro Neuro: No motor deficit, No sensory deficit Results - Vitals Vitals: Vital Signs - 24 hr 01/09/24 01/09/24 09:01 11:49 Temperature 36.4 C L 36.8 C Heart Rate 70 70 Respiratory 16 16 Rate Blood Pressure 152/70 H 154/80 H O2 Saturation 100 100 Oxygen O2 Source Room air Procedures - Laceration (location) right forearm Length in cm: 3.2 Wound type: Curved, Into subcut fat, Clean Anesthesia: Lidocaine 1% with epi Wound preparation: Irrigated copiously NS, debridement of wound edges (traumatic laceration/avulsion) Deep layer closure: Vicryl, size #-0 - enter number (4), # sutures - enter number (3) Skin layer closure: Nylon, Running, Size #-0 - enter number (4), Sutures - enter # (12) Other: Patient tolerated well, No complications, Neurovascular intact, Dressing applied, Tetanus UTD PD Medical Decision Making - ED course Complexity details: considered differential (laceration repaired. Pt going on trip to [place] for family events, leaving tomorrow and returning in 14 days. This is reasonable time frame for suture removal. ), d/w patient Departure - Departure Disposition: 01 Home, Self Care Clinical Impression: Forearm laceration Condition: Stable Record reviewed to determine appropriate education?: Yes Instructions: ED Laceration All Comments: It is okay to wash and shower. Clean off the wound twice a day with soap and water, or peroxide and water. Apply some antibiotic ointment to it to keep it moist. Also to watch for signs of infection such as purulence, redness or increasing pain. Return to your primary care or the ER at the specified time for suture removal. Suture removal approximately 14 days. Activity as tolerated but try not to be too heavy lifting initially. Forms: PCP List Discharge Date/Time: 01/09/24 11:52
[2024-01-09] MEDS: BACITRACIN ZINC OINT 1 PACKET TOP STA (11:37)
[2024-01-09 12:01] VITALS: BP 154/80
== END 2024-01-09 11:52 | disposition home or self-care (01) ==
LOC: ED 08:44
DX: S51.811A Laceration without foreign body of right forearm, initial encounter (principal); S50.811A Abrasion of right forearm, initial encounter; W18.40XA Slipping, tripping and stumbling without falling, unspecified, initial encounter; W22.09XA Striking against other stationary object, initial encounter; Y92.009 Unspecified place in unspecified non-institutional (private) residence as the place of occurrence of the external cause
CPT/HCPCS: 13121; 99283; A9270

== ENCOUNTER 2024-01-25 07:37 | Outpatient (CLI) | payer MEDICARE, OTHER ==
--- NOTE | 2024-01-25 08:19 | CARDIAC PROCEDURE NOTE ---
Stress Test Report Service Date: 01/25/24 Service Time: 08:00 Ordering Provider: DEVONTE Epstein Indication for Test: Assess intermittent non-exertional chest tightness. Significant Medical History: Sheeba is referred for a treadmill stress echocardiogram today to assess her concern for intermittent chest tightness, that is primarily nonexertional and occurs in the evenings. This has been present intermittently for the past 4-6 months and has not been associated with shortness of breath, nausea or diaphoresis. She reports an uncomfortable upper chest sensation, primarily centered posteriorly in her chest and different from an intermittent lower anterior discomfort that in the past has been attributed to GERD. The latter is typically improved with assuming upright posture and drinking water. She has not discerned any maneuvers that will relieve the upper chest tightness, rather it seems to come and go on its own. She remains active, walking a few times a week on a route that does not include significant hills. She believes her stamina remains intact. She has a separate concern for lightheadedness, that occurs at times when in the shower or doing activities where her arms are elevated above her head. Sometimes she feels like this could lead to her passing out, but it has not progressed to full syncope. She has an arm blood pressure cuff at home for self-monitoring and reports recent pressures running typicallyt in the 140s over about 80. The cuff is at least 5 years old and has not been checked for accuracy in the past. Following our finding evidence of a modest increase in estimated PA/RV systolic pressure and intermediate CVP levels, she reported the use of compression stockings to help to prevent significant edema. She has worn these since completing chemotherapy for breast cancer and presumably the abnormal echo findings that will be described below are attributable to an adverse response to said chemotherapy. 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 She has not had any occupational exposure that she could identify that might affect her lungs. Cardiac Risk Factors: Positive for family history of ASCVD, including CVA in mother, brain aneurysm in father and IL in 2 paternal uncles; negative for history of hypertension, diabetes, tobacco smoking and hyperlipidemia (fasting lipids in 05/27 included TChol 194, LDLc 99, HDLc 73, TG 108 NOT on statin treatment ever). Type of Stress Test: ETT with Echocardiography Procedure: -Exercise Treadmill Test- After signing informed consent, the patient underwent echo imaging at rest and then performed treadmill exercise using a Narendra protocol. The patient exercised for 4 minutes 50 seconds and achieved a peak heart rate of 162 (110 percent predicted maximum heart rate for age), and an estimated workload of 6.8 METS. The test was terminated due to fatigue/shortness of breath. Resting heart rate: 93 Peak heart rate: 162 Normal response to exercise. Resting BP: 157/90 Peak BP: 202/83 Hypertensive systolic and diastolic BPs at rest with normal responses to exercise. Room air oxygen saturation during exercise ranged between 93-98%. Rhythm during exercise: Sinus rhythm throughout, without ectopy; zero PVCs recorded. Symptoms: In early stage 2 she described the onset of upper anterior chest discomfort, that was different than the upper posterior chest discomfort that prompted the test, as well as from the lower chest discomfort that has been attributed to GERD in the past. The discomfort resolved almost immediately upon her lying down for post-stress echo imagin and NTG thus NOT administered. EKG at rest showed Normal sinus rhythm with right axis deviation (not severe enough to be considered due to left posterior fascicular block). There did not appear to be atrial abnormalities, ventricular hypertrophy nor abnormalities of the ST/T pattern that would render the EKG uninterpretable with exercise. EKG at peak stress showed no ischemia by EKG criteria. In Recovery heart rate rapidly/normally decreased to the resting level with a slower decrease in blood pressure which remained elevated at 176/77 at 7 minutes. Echo imaging performed at rest and with stress will be reported separately. Khoi Chua MD, was present throughout this treadmill stress study and supervised it in its entirety. Summary: 1) Exercise tolerance slightly below average for age and sex as evidenced by URMILA of 9%. 2) Normal ST/T pattern without evidence of prior IL on resting EKG. 3) Adequate level of exercise was achieved on this treadmill stress test. 4) Hypertensive at rest with normal BP response to exercise. 5) No ischemic changes by EKG criteria were seen at peak stress. 6) Echo image interpretation reveals normal left ventricular size, wall thickness and systolic function, with appropriate hyperdynamic augmentation of all segments with exercise, indicating no evidence of prior infarct or inducible ischemia. Abnormalities were seen on the screening study that included mild aortic insufficiency, regurgitation of a structurally normal tricuspid valve with velocity of 2.9 m/s, with an increase of IVC dimension with partial collapse, suggesting right atrial pressure of 15 mmHg and in increase of estimated RV/PA systolic pressure to 47-49 mmHg. No other significant valvular abnormalies were observed. See separate report for more details. Conclusions and Recommendations: 1) This study was notable for resting blood pressure elevation, modestly reduced exercise time for age and sex, but no recreation of the upper posterior chest discomfort that prompted the study and no EKG nor echo evidence of inducible ischemia. 2) Given the absence of inducible ischemia there does not appear to be an ongoing indication for the use of low-dose aspirin as a preventative measure and this could be discussed at a follow-up visit with her primary provider. 3) We discussed the possible causes and significance of her elevated right atri al and right ventricular systolic pressures, which could be sequelae of her prior chemotherapy for breast cancer, especially given that she has been wearing compression stockings to prevent edema since completing those therapies approximately 14 years ago. I advised that if the swelling becomes more difficult to manage it would be reasonable for her to undergo a dedicated echocardiogram to see if these findings have progressed, but I do not believe that any other workup that needs to be done at the present time. 4) I encouraged her to obtain a set resting blood pressure values, ideally on about a half dozen mornings and a few other times in the afternoons when she is at rest and to bring the values, plus her BP cuff to her next clinic visit, to confirm the cuff's accuracy and review whether antihypertensive therapy is warranted. If so she might be a good candidate for chlorthalidone, given concern for mild peripheral edema. 5) She did not experience lightheadedness during the study, but is concerned about whether there is anything more that could be done to mitigate this symptom. It would be reasonable for her to undergo ambulatory rhythm monitoring for 7-14 days with a CAM patch to see if there are occult dysrhythmias contributing.
== END 2024-01-25 07:38 | disposition home or self-care (01) ==
LOC: DI 07:37
PROVIDERS: ATTEND Nurse Practitioner
DX: R07.89 Other chest pain (principal); R03.0 Elevated blood-pressure reading, without diagnosis of hypertension; I27.20 Pulmonary hypertension, unspecified; Z82.3 Family history of stroke
CPT/HCPCS: 93350